=== PATIENT | female | born 1955 | race Caucasian/White ===

== ENCOUNTER 2020-02-24 19:06 | Inpatient (IN) | payer MEDICARE, MEDICAID ==
[~2020-02-24] VITALS: Ht 157.5 cm; Wt 51.7 kg
[2020-02-25 04:30] VITALS: BP 149/84
[2020-02-25] MEDS ORDERED: ONDANSETRON HCL 4 MG TABLET PO PRN (08:45)
[2020-02-25] MEDS ORDERED: PETROLATUM,WHITE 28 GM JELLY TP PRN (08:45)
[2020-02-25] MEDS ORDERED: LOPERAMIDE HCL 2 MG CAPSULE PO PRN (08:45)
[2020-02-25] MEDS ORDERED: MAG HYDROX/AL HYDROX/SIMETH ES 30 ML SUSPENSION UDCUP PO PRN (08:45)
[2020-02-25] MEDS ORDERED: NICOTINE 14 MG/24 HOUR PATCH TD PRN (08:45)
[2020-02-25] MEDS ORDERED: DOCUSATE SODIUM 100 MG CAPSULE PO PRN (08:45)
[2020-02-25] MEDS ORDERED: GuaiFENesin/D-METHORPHAN [SUGAR-FREE] 200-20MG/10 ML SYRUP UDCUP PO PRN (08:45)
[2020-02-25] MEDS ORDERED: QUET100T PO (09:03)
[2020-02-25 09:13] VITALS: BP 108/62
[2020-02-25] MEDS: MAGNESIUM HYDROXIDE SUSPENSION 30 ML UDCUP PO PRN (10:06)
[2020-02-25 15:01] VITALS: BP 111/75
[2020-02-25 16:00] VITALS: BP 135/92
[2020-02-25] MEDS: LURASIDONE HCL 40 MG TABLET PO SCH (17:00)
[2020-02-25] MEDS ORDERED: DiphenhydrAMINE HCL 25 MG CAPSULE PO ONE (21:45)
[2020-02-26 01:21] VITALS: BP 122/77
[2020-02-26] MEDS: LORazepam 2 MG TABLET PO PRN ×2 (01:36→12:18)
[2020-02-26] MEDS: CloNIDine HCL 0.1 MG TABLET PO PRN (08:10)
[2020-02-26 08:14] VITALS: BP 178/92
[2020-02-26 08:19] LABS: BASOPHILS % (AUTO) 1.2 % (0.0-2.0); EOSINOPHILS % (AUTO) 3.4 % (1.0-6.0); HEMATOCRIT 40.1 % (36-46); HEMOGLOBIN 13.4 g/dL (12.0-16.0); LYMPHOCYTES # (AUTO) 1.4 K/uL (1.0-4.8); LYMPHOCYTES % (AUTO) 28.7 % (22.0-44.0); MEAN CORPUSCULAR HEMOGLOBIN 29.9 pg (26.0-34.0); MEAN CORPUSCULAR HGB CONC 33.4 G/dL (31.0-37.0); MEAN CORPUSCULAR VOLUME 90 fL (80-100); MONOCYTES # (AUTO) 0.5 K/uL (0.1-1.0); MONOCYTES % (AUTO) 9.6 % (2.0-9.0); NEUTROPHILS # (AUTO) 2.7 K/uL (1.8-7.7); NEUTROPHILS % (AUTO) 57.1 % (40.0-70.0); PLATELET COUNT (AUTO) 175 K/uL (150-450); RED BLOOD CELL COUNT(AUTO) 4.48 MIL/uL (4.00-5.20); RED CELL DISTRIBUTION WIDTH 13.3 % (11.5-14.5)
[2020-02-26 08:48] LABS: ANION GAP 8 mmol/L (8-16); CALCIUM, TOTAL 8.8 mg/dL (8.8-10.5); CARBON DIOXIDE 28 mmol/L (22-29); CHLORIDE 106 mmol/L (98-107); CHOL/HDL RATIO 2.8 (3.9-5.7); CHOLESTEROL 168 mg/dL (131-200); CREATININE 0.72 mg/dL (0.60-1.30); GLOMERULAR FILTR. RATE CALC > 60 mL/min (>60); GLUCOSE,RANDOM 88 mg/dL (70-110); HDL CHOLESTEROL 59 mg/dL (40-60); LDL CHOL (CALC.) 91 mg/dL (0-130); POTASSIUM 4.1 mmol/L (3.5-5.1); SODIUM SERUM 142 mmol/L (136-145); TRIGLYCERIDES 88 mg/dL (15-150); UREA NITROGEN, BLOOD 15 mg/dL (7-18)
[2020-02-26] MEDS: MAGNESIUM HYDROXIDE SUSPENSION 30 ML UDCUP PO PRN (09:08)
[2020-02-26] MEDS ORDERED: DEXT5TAB16 PO (09:11)
[2020-02-26] MEDS ORDERED: DIVA125T32 PO (09:11)
[2020-02-26] MEDS ORDERED: ALPR0.255 PO (09:11)
[2020-02-26] MEDS ORDERED: HYDR-3290 PO (09:13)
[2020-02-26 09:14] VITALS: BP 118/75
[2020-02-26 16:00] VITALS: BP 102/72
[2020-02-26] MEDS: LURASIDONE HCL 40 MG TABLET PO SCH (16:38)
[2020-02-26] MEDS ORDERED: BISACODYL 5 MG EC TABLET PO PRN (17:00)
[2020-02-26] MEDS: QUEtiapine FUMARATE 100 MG TABLET PO PRN (17:53)
[2020-02-27 01:12] VITALS: BP 106/61
[2020-02-27 05:20] VITALS: BP 140/90
[2020-02-27] MEDS: LORazepam 2 MG TABLET PO PRN ×2 (05:26→13:37)
[2020-02-27] MEDS: IBUPROFEN 400 MG TABLET PO PRN ×2 (05:26→05:27)
[2020-02-27 08:02] VITALS: BP 120/85
[2020-02-27 08:59] LABS: APPEARANCE,URINE CLEAR (CLEAR); BILIRUBIN,URINE NEGATIVE (NEGATIVE); GLUCOSE, URINE (UA) NEGATIVE (NEGATIVE); KETONES,URINE NEGATIVE (NEGATIVE); NITRATE,URINE NEGATIVE (NEGATIVE); OCCULT BLOOD,URINE NEGATIVE (NEGATIVE); PH,URINE 7.5 (5.0-8.0); PROTEIN,URINE NEGATIVE (NEGATIVE); UROBILINOGEN,URINE 0.2 mg/dL (<=1.0)
[2020-02-27 09:04] LABS: BACTERIA,URINE None Seen /HPF (None Seen); LEUKOCYTE ESTERASE ,URINE NEGATIVE (NEGATIVE); RBC,URINE None Seen /HPF (0-2); WBC,URINE None Seen /HPF (0-5)
[2020-02-27 16:00] VITALS: BP 139/89
[2020-02-27] MEDS: LURASIDONE HCL 40 MG TABLET PO SCH (16:48)
[2020-02-27] MEDS: ZOLPIDEM TARTRATE 10 MG TABLET PO PRN (20:55)
[2020-02-28] VITALS: BP 138/82
[2020-02-28] MEDS: LORazepam 2 MG TABLET PO PRN ×2 (04:09→16:09)
[2020-02-28] MEDS: MAGNESIUM HYDROXIDE SUSPENSION 30 ML UDCUP PO PRN (04:18)
[2020-02-28] MEDS: ALBUTEROL SULFATE HFA 90 MCG/PUFF 8 GM INHALER IH PRN (06:12)
[2020-02-28 09:53] VITALS: BP 148/89
[2020-02-28] MEDS: LURASIDONE HCL 40 MG TABLET PO SCH (16:09)
[2020-02-28 16:12] VITALS: BP 135/84
[2020-02-28] MEDS: RisperiDONE 2 MG TABLET PO SCH (20:19)
[2020-02-29 02:46] VITALS: BP 147/110
[2020-02-29] MEDS: LORazepam 2 MG TABLET PO PRN ×3 (02:48→18:09)
[2020-02-29] MEDS: FLUTICASONE PROPIONATE 50 MCG/SPRAY 16 GM NASAL SPRAY NASAL PRN (08:43)
[2020-02-29 09:35] VITALS: BP 146/96
[2020-02-29] MEDS: CARVEDILOL 3.125 MG TABLET PO SCH ×2 (10:33→16:21)
[2020-02-29 16:22] VITALS: BP 169/97
[2020-02-29 18:18] VITALS: BP 172/100
[2020-02-29] MEDS: CloNIDine HCL 0.1 MG TABLET PO PRN (18:23)
[2020-02-29 19:30] VITALS: BP 118/79
[2020-02-29] MEDS: RisperiDONE 2 MG TABLET PO SCH (20:40)
[2020-03-01 01:31] VITALS: BP 120/82
[2020-03-01] MEDS: LORazepam 2 MG TABLET PO PRN ×3 (01:48→13:46)
[2020-03-01] MEDS: ZOLPIDEM TARTRATE 10 MG TABLET PO PRN (01:48)
[2020-03-01 08:17] VITALS: BP 121/72
[2020-03-01] MEDS: CARVEDILOL 3.125 MG TABLET PO SCH ×2 (09:02→16:54)
[2020-03-01] MEDS: QUEtiapine FUMARATE 100 MG TABLET PO PRN ×2 (09:02→18:17)
[2020-03-01 16:21] VITALS: BP 125/87
[2020-03-01] MEDS: ALBUTEROL SULFATE HFA 90 MCG/PUFF 8 GM INHALER IH PRN (18:17)
[2020-03-01] MEDS: MAGNESIUM HYDROXIDE SUSPENSION 30 ML UDCUP PO PRN (18:17)
[2020-03-01] MEDS: RisperiDONE 2 MG TABLET PO SCH (20:44)
[2020-03-02 02:26] VITALS: BP 143/90
[2020-03-02] MEDS: ZOLPIDEM TARTRATE 10 MG TABLET PO PRN ×2 (02:40→22:43)
[2020-03-02] MEDS: LORazepam 2 MG TABLET PO PRN ×2 (02:40→08:48)
[2020-03-02] MEDS: CARVEDILOL 3.125 MG TABLET PO SCH ×2 (08:44→16:34)
[2020-03-02] MEDS: ALBUTEROL SULFATE HFA 90 MCG/PUFF 8 GM INHALER IH PRN (08:48)
[2020-03-02] MEDS: FLUTICASONE PROPIONATE 50 MCG/SPRAY 16 GM NASAL SPRAY NASAL PRN (08:49)
[2020-03-02 08:57] VITALS: BP 139/84
[2020-03-02] MEDS: QUEtiapine FUMARATE 100 MG TABLET PO PRN (14:56)
[2020-03-02] MEDS: MAGNESIUM HYDROXIDE SUSPENSION 30 ML UDCUP PO PRN (15:04)
[2020-03-02 16:15] VITALS: BP 131/85
[2020-03-02] MEDS: RisperiDONE 2 MG TABLET PO SCH (20:38)
[2020-03-03 00:20] VITALS: BP 126/82
[2020-03-03] MEDS: LORazepam 2 MG TABLET PO PRN ×3 (00:23→14:27)
[2020-03-03 08:03] VITALS: BP 135/94
[2020-03-03] MEDS: CARVEDILOL 3.125 MG TABLET PO SCH ×2 (08:58→16:39)
[2020-03-03] MEDS: FLUTICASONE PROPIONATE 50 MCG/SPRAY 16 GM NASAL SPRAY NASAL PRN (09:56)
[2020-03-03] MEDS: ALBUTEROL SULFATE HFA 90 MCG/PUFF 8 GM INHALER IH PRN (09:56)
[2020-03-03] MEDS ORDERED: ARIPiprazole LAUROXIL ER SUSPENSION 662 MG/2.4 ML SYRINGE IM SCH (16:00)
[2020-03-03 19:00] VITALS: BP 170/96
[2020-03-03] MEDS: CloNIDine HCL 0.1 MG TABLET PO PRN (19:03)
[2020-03-03 20:06] VITALS: BP 143/92
[2020-03-03] MEDS: ZOLPIDEM TARTRATE 10 MG TABLET PO PRN (20:43)
[2020-03-03] MEDS: MAGNESIUM HYDROXIDE SUSPENSION 30 ML UDCUP PO PRN (20:43)
[2020-03-04] MEDS: LORazepam 2 MG TABLET PO PRN ×3 (00:44→17:27)
[2020-03-04] MEDS: QUEtiapine FUMARATE 100 MG TABLET PO PRN ×3 (00:44→18:27)
[2020-03-04 02:39] VITALS: BP 137/93
[2020-03-04 06:25] VITALS: BP 140/92
[2020-03-04] MEDS: FLUTICASONE PROPIONATE 50 MCG/SPRAY 16 GM NASAL SPRAY NASAL PRN (06:32)
[2020-03-04] MEDS: CARVEDILOL 3.125 MG TABLET PO SCH ×2 (09:10→17:13)
[2020-03-04] MEDS: FOLIC ACID 1 MG TABLET PO SCH (09:10)
[2020-03-04] MEDS: MULTIVITAMINS, THERAPEUTIC TABLET PO SCH (09:10)
[2020-03-04 16:09] VITALS: BP 125/73
[2020-03-04] MEDS: ZOLPIDEM TARTRATE 10 MG TABLET PO PRN (20:45)
[2020-03-05] MEDS: QUEtiapine FUMARATE 100 MG TABLET PO PRN ×3 (04:05→21:00)
[2020-03-05] MEDS: LORazepam 2 MG TABLET PO PRN ×2 (04:05→13:57)
[2020-03-05 04:07] VITALS: BP 131/86
[2020-03-05 08:12] VITALS: BP 154/85
[2020-03-05] MEDS: ALBUTEROL SULFATE HFA 90 MCG/PUFF 8 GM INHALER IH PRN ×2 (09:00→16:02)
[2020-03-05] MEDS: FLUTICASONE PROPIONATE 50 MCG/SPRAY 16 GM NASAL SPRAY NASAL PRN ×2 (09:00→16:02)
[2020-03-05] MEDS: CARVEDILOL 3.125 MG TABLET PO SCH ×2 (09:25→16:37)
[2020-03-05] MEDS: MULTIVITAMINS, THERAPEUTIC TABLET PO SCH (09:26)
[2020-03-05] MEDS: FOLIC ACID 1 MG TABLET PO SCH (09:26)
[2020-03-05 16:13] VITALS: BP 148/95
[2020-03-05] MEDS: MAGNESIUM HYDROXIDE SUSPENSION 30 ML UDCUP PO PRN (18:51)
[2020-03-05] MEDS: ZOLPIDEM TARTRATE 10 MG TABLET PO PRN (21:00)
[2020-03-06] MEDS: LORazepam 2 MG TABLET PO PRN ×2 (00:39→20:52)
[2020-03-06 00:41] VITALS: BP 152/89
[2020-03-06] MEDS: QUEtiapine FUMARATE 100 MG TABLET PO PRN ×2 (05:40→13:39)
[2020-03-06 08:41] VITALS: BP 108/72
[2020-03-06] MEDS: CARVEDILOL 3.125 MG TABLET PO SCH ×2 (08:45→16:25)
[2020-03-06] MEDS: MULTIVITAMINS, THERAPEUTIC TABLET PO SCH (08:45)
[2020-03-06] MEDS: FOLIC ACID 1 MG TABLET PO SCH (08:47)
[2020-03-06 16:28] VITALS: BP 139/82
[2020-03-07 00:26] VITALS: BP 132/80
[2020-03-07] MEDS: MAGNESIUM HYDROXIDE SUSPENSION 30 ML UDCUP PO PRN ×2 (01:55→21:26)
[2020-03-07] MEDS: QUEtiapine FUMARATE 100 MG TABLET PO PRN ×4 (01:55→21:33)
[2020-03-07 06:20] VITALS: BP 140/86
[2020-03-07] MEDS: LORazepam 2 MG TABLET PO PRN ×2 (06:27→19:43)
[2020-03-07] MEDS: CARVEDILOL 3.125 MG TABLET PO SCH ×2 (08:11→15:53)
[2020-03-07] MEDS: MULTIVITAMINS, THERAPEUTIC TABLET PO SCH (08:11)
[2020-03-07] MEDS: FOLIC ACID 1 MG TABLET PO SCH (08:12)
[2020-03-07 08:31] VITALS: BP 118/68
[2020-03-07 16:23] VITALS: BP 140/90
[2020-03-07] MEDS: ALBUTEROL SULFATE HFA 90 MCG/PUFF 8 GM INHALER IH PRN (19:41)
[2020-03-07] MEDS: FLUTICASONE PROPIONATE 50 MCG/SPRAY 16 GM NASAL SPRAY NASAL PRN (19:41)
[2020-03-07] MEDS: ZOLPIDEM TARTRATE 10 MG TABLET PO PRN (21:33)
[2020-03-08 01:05] VITALS: BP 134/80
[2020-03-08] MEDS: LORazepam 2 MG TABLET PO PRN (01:40)
[2020-03-08 06:23] VITALS: BP 153/99
[2020-03-08] MEDS: IBUPROFEN 400 MG TABLET PO PRN (06:24)
[2020-03-08] MEDS: QUEtiapine FUMARATE 100 MG TABLET PO PRN ×2 (06:24→11:30)
[2020-03-08] MEDS: FOLIC ACID 1 MG TABLET PO SCH (09:06)
[2020-03-08] MEDS: MULTIVITAMINS, THERAPEUTIC TABLET PO SCH (09:06)
[2020-03-08] MEDS: CARVEDILOL 3.125 MG TABLET PO SCH (09:06)
[2020-03-08 09:44] VITALS: BP 150/96
[2020-03-08] MEDS ORDERED: ARIP662S IM (11:51)
[2020-03-08] MEDS ORDERED: CARV3 PO (14:35)
== END 2020-03-08 18:26 | disposition home or self-care (01) | DRG 885 ==
LOC: B2S 02-25 02:15 → B2X 03-04 18:53
DX: F31.5 Bipolar disorder, current episode depressed, severe, with psychotic features (principal); R45.851 Suicidal ideations; F12.10 Cannabis abuse, uncomplicated; E78.5 Hyperlipidemia, unspecified; F90.9 Attention-deficit hyperactivity disorder, unspecified type; Z88.8 Allergy status to other drugs, medicaments and biological substances; Z88.6 Allergy status to analgesic agent; F41.9 Anxiety disorder, unspecified; F31.81 Bipolar II disorder; F42.9 Obsessive-compulsive disorder, unspecified; R53.83 Other fatigue; R03.0 Elevated blood-pressure reading, without diagnosis of hypertension
CPT/HCPCS: 84443; J3535